=== PATIENT | female | born 1950 | race Two or more races ===

== ENCOUNTER 2019-01-21 08:23 | Outpatient (CLI) | payer OTHER ==
[~2019-01-21] VITALS: Ht 152.4 cm; Wt 91.6 kg
[2019-01-28] MEDS ORDERED: XANAX XR0.5 MG (03:24)
[2019-01-28] MEDS ORDERED: SYNTHROID50 MCG (03:24)
[2019-01-28] MEDS ORDERED: LOSARTAN POTASS50 MG (03:24)
[2019-01-28] MEDS ORDERED: RESTORIL15 M1 (03:24)
== END 2019-01-21 12:23 | disposition home or self-care (01) ==
LOC: OFIC 805 08:23
DX: G47.33 Obstructive sleep apnea (adult) (pediatric) (principal); R06.83 Snoring; J31.2 Chronic pharyngitis; J31.0 Chronic rhinitis; G93.2 Benign intracranial hypertension; M31.6 Other giant cell arteritis

== ENCOUNTER → 2019-01-28 | Emergency (ER) | payer OTHER ==
[~2019-01-28] VITALS: Ht 162.6 cm; Wt 91.6 kg
[~2019-01-28] MED LIST: LOSARTAN POTASS50 MG; RESTORIL15 M1; SYNTHROID50 MCG; XANAX XR0.5 MG
== END | disposition left against medical advice (07) ==
LOC: ER 02:57
DX: Z53.20 Procedure and treatment not carried out because of patient's decision for unspecified reasons (principal)

== ENCOUNTER 2019-02-16 17:13 | Outpatient (CLI) | payer OTHER | END 2019-02-16 18:08 | disposition home or self-care (01) | LOC: RAD 17:13 | DX: I77.0 Arteriovenous fistula, acquired (principal) ==

== ENCOUNTER → 2021-08-12 | Emergency (ER) | payer OTHER ==
[~2021-08-12] VITALS: Ht 162.6 cm; Wt 98.4 kg
[~2021-08-12] MED LIST changes: +ALPRAZOLAM0.5 MG PO; +MAXZIDE 37.5 M1 EACH PO; +NORVASC2.5 MG PO; +PANTOPRAZOLE SO40 MG PO; +PROTONIX40 MG PO; +TRIAMTERENE-HC1 EAC2 PO
== END | disposition home or self-care (01) ==
LOC: ER 02:02
DX: I10 Essential (primary) hypertension (principal); K21.9 Gastro-esophageal reflux disease without esophagitis; E03.9 Hypothyroidism, unspecified

== ENCOUNTER 2021-08-16 07:17 | Outpatient (CLI) | payer OTHER ==
[~2021-08-16 07:17] MED LIST changes: -ALPRAZOLAM0.5 MG PO; -MAXZIDE 37.5 M1 EACH PO; -NORVASC2.5 MG PO; -PANTOPRAZOLE SO40 MG PO; -PROTONIX40 MG PO; -TRIAMTERENE-HC1 EAC2 PO
[2021-09-12] MEDS ORDERED: NORVASC2.5 MG PO (13:00)
[2021-09-12] MEDS ORDERED: ALPRAZOLAM0.5 MG PO (13:00)
[2021-09-12] MEDS ORDERED: TRIAMTERENE-HC1 EAC2 PO (13:00)
[2021-09-12] MEDS ORDERED: PANTOPRAZOLE SO40 MG PO (13:00)
[2021-09-12] MEDS ORDERED: PROTONIX40 MG PO (13:03)
[2021-09-12] MEDS ORDERED: MAXZIDE 37.5 M1 EACH PO (13:03)
== END 2021-08-16 07:24 | disposition home or self-care (01) ==
LOC: NUCLEAR 07:17
PROVIDERS: ATTEND Internal Medicine Cardiovascular Disease
DX: I20.8 Other forms of angina pectoris (principal)
CPT/HCPCS: 78452; 93017; A9500; J0153

== ENCOUNTER 2022-12-02 14:59 | Emergency (ER) | payer OTHER ==
[~2022-12-02] VITALS: Ht 162.6 cm; Wt 92.5 kg
[~2022-12-02 14:59] MED LIST changes: +ALPRAZOLAM0.5 MG PO; +MAXZIDE 37.5 M1 EACH PO; +NORVASC2.5 MG PO; +PANTOPRAZOLE SO40 MG PO; +PROTONIX40 MG PO; +TRIAMTERENE-HC1 EAC2 PO
== END 2022-12-02 18:53 | disposition home or self-care (01) ==
LOC: ER 14:59
DX: K57.32 Diverticulitis of large intestine without perforation or abscess without bleeding (principal); K57.30 Diverticulosis of large intestine without perforation or abscess without bleeding; Z91.018 Allergy to other foods
CPT/HCPCS: 36415; 74176; 96372; 99284; J1885